=== PATIENT | female | born 1950 | race Caucasian/White ===

== ENCOUNTER → 2017-12-10 | Outpatient (CLI) | payer MEDICARE, OTHER ==
[~2017-12-10] MED LIST: ACET325 PO; ALBU90OI INH; ASPI325 PO; CHOL10002; FLUSAL2505 INH; IBUP400; NASACORT10.8 ML NS; OXYC5 PO; RANI150; [UNRECOGNIZED DRUG - OTHER]; [UNRECOGNIZED DRUG - REMARK]
== END | disposition home or self-care (01) ==
LOC: LAB SHORT 09:56 → PLD 09:56
DX: D48.5 Neoplasm of uncertain behavior of skin (principal)
CPT/HCPCS: 88305

== ENCOUNTER → 2018-09-16 | Outpatient (CLI) | payer MEDICARE, OTHER ==
[~2018-09-16] MED LIST changes: +ALEN70 PO; +Advil200 M1 PO; +DGL PO; +FLUT1DIS5 INH; +IBUP600 PO; +NASACORT10.8 ML; +Norco 5-325 Ta1 EACH PO; +PRAV20 PO; +THERA1 EACH PO; +Ventolin/Prove6.7 GM INH
== END | disposition home or self-care (01) ==
LOC: LAB SHORT 12:55 → PLD 12:55
DX: N85.02 Endometrial intraepithelial neoplasia [EIN] (principal)
CPT/HCPCS: 88305

== ENCOUNTER 2018-10-25 07:29 | Day surgery (SDC) | payer MEDICARE, OTHER ==
[~2018-10-25] VITALS: Ht 157.5 cm; Wt 103.7 kg
[~2018-10-25 07:29] MED LIST changes: -IBUP600 PO; -Norco 5-325 Ta1 EACH PO
--- NOTE | 2018-10-25 08:16 | NUR ---
NO JEWELRY PRESENT AT ADMIT, PATIENT HAS GLASSES ON.
--- NOTE | 2018-10-25 08:16 | NUR ---
History, Chart, Medications and Allergies reviewed before start of procedure. Patient confirms NPO status and agrees with scheduled surgery. Lungs clear T/O to Auscultation. Pre-Op teaching done. Pt verbalizes understanding. Patient reports completing Chlorhexadine shower X2 prior to admission to hospital.
--- NOTE | 2018-10-25 08:38 | NUR ---
EMERGENCY SERVICES PROFESSIONAL REPORT COMPLETED AT BEDSIDE WITH MALIK RODRIGUEZ RN.
--- NOTE | 2018-10-25 17:25 | NUR ---
SHIFT SUMMARY PT POD 0 LAVH. STERI STRIPS X'S 3 C/D/I. CAPONE PATENT, DRAINING CLEAR YELLOW URINE. PT MEDICATED ONCE WITH 5/325MG NORCO-PT REPORTS PAIN TOLERABLE AT 4/10 PAIN. PT AMBULATED TO BATHROOM ONCE POST-OP. ADVANCE TO VEGETARIAN DIET PT DENIES N/V AND TOLERATING CLEAR LIQUIDS. PLAN TO DC CAPONE IN AM WITH DC HOME TOMORROW IF PT MEETS DC CRITERIA.
--- NOTE | 2018-10-26 01:24 | NUR ---
ASSUMING CARE OF PT AT THIS TIME. REPORT RECEIVED BY JIGAR CASANOVA.
[2018-10-26 04:52] LABS: BASOPHILS ABSOLUTE AUTO 0.02 K/mm3 (0.00-0.23); BASOPHILS PERCENT AUTO 0 % (0-2); EOSINOPHILS PERCENT AUTO 0 % (0-6); Hematocrit 36.3 % (33.0-51.0); Hemoglobin 11.7 g/dL (11.5-16.0); IMMATURE GRAN ABSOLUTE AUTO 0.06 K/mm3 (0.00-0.10); IMMATURE GRAN PERCENT AUTO 0 % (0-1); LYMPHOCYTES ABSOLUTE AUTO 0.97 K/mm3 (0.84-5.20); LYMPHOCYTES PERCENT AUTO 6 % (21-46); MONOCYTES ABSOLUTE AUTO 0.89 K/mm3 (0.16-1.47); MONOCYTES PERCENT AUTO 6 % (4-13); Mean Corpuscular HGB 30.2 pg (26.0-34.0); Mean Corpuscular HGB Conc 32.2 g/dL (31.5-36.5); Mean Platelet Volume 10.8 fL (9.1-12.4); NEUTROPHILS ABSOLUTE AUTO 13.99 K/mm3 (1.96-9.15); NEUTROPHILS PERCENT AUTO 88 % (41-73); Platelet Count 246 K/mm3 (150-400); RDW Coefficient Variation 12.2 % (11.7-14.2); RDW Standard Deviation 41.5 fL (35.1-46.3); Red Blood Cell Count 3.87 M/mm3 (3.80-5.20); White Blood Cell Count 15.93 K/mm3 (4.00-11.30)
[2018-10-26 05:12] LABS: Mean Corpuscular Volume 94 fL (80-100)
--- NOTE | 2018-10-26 06:09 | NUR ---
SHIFT SUMMARY: PT A&O X4. VS STABLE. STERI STRIPS CDI. PAIN MANAGED WITH TORADOL. RATING PAIN 4/10 AND REPORTS IT IS TOLERABLE. AMBULATING HALLWAY. SBA. PT REPORTS PASSING FLATUS. SMALL AMOUNT OF BLOODY DRG ON PAMELA PAD. WAITING FOR PT TO VOID POST CAPONE REMOVAL.
--- NOTE | 2018-10-26 07:10 | NUR ---
recvd report from previous shift rn summer, pt sleeping in bed, bed in lowest position, bed rails up x 2, call light within reach
--- NOTE | 2018-10-26 08:00 | NUR ---
dr sneha corado rounding on pt
[2018-10-26] MEDS ORDERED: IBUP600 PO (11:11)
[2018-10-26] MEDS ORDERED: Norco 5-325 Ta1 EACH PO (11:11)
--- NOTE | 2018-10-26 11:30 | NUR ---
provided pt with discharge instructions, printed material/education, peripheral IV removed wnl. pt will dress herself, is awaiting her for ride home
--- NOTE | 2018-10-26 12:35 | NUR ---
pt escorted via wheelchair with her belongings to awaiting vehicle. will drive pt home
--- NOTE | 2018-10-26 16:17 | NUR ---
10/26/18 1617 Pricilla Motley VERIFICATIONS: EDIT CHART.
== END 2018-10-26 12:35 | disposition home or self-care (01) ==
LOC: ORSCMMR 07:29 → ORD 09:00 → ORSCMMR 09:00 → SURS 12:18 → ORSCMMR 10-26 12:35
PROVIDERS: Obstetrics & Gynecology
PROC: 0UT6FZZ Resection of Left Fallopian Tube, Via Natural or Artificial Opening With Percutaneous Endoscopic Assistance (ICD-10-PCS; principal; 2018-10-25 09:00)
PROC: 0UT1FZZ Resection of Left Ovary, Via Natural or Artificial Opening With Percutaneous Endoscopic Assistance (ICD-10-PCS; principal; 2018-10-25 09:00)
PROC: 0UT9FZZ Resection of Uterus, Via Natural or Artificial Opening With Percutaneous Endoscopic Assistance (ICD-10-PCS; principal; 2018-10-25 09:00)
DX: N95.0 Postmenopausal bleeding (principal); C54.1 Malignant neoplasm of endometrium; N80.0 Endometriosis of uterus; D25.9 Leiomyoma of uterus, unspecified; D27.1 Benign neoplasm of left ovary; J45.909 Unspecified asthma, uncomplicated; E66.01 Morbid (severe) obesity due to excess calories; Z68.41 Body mass index [BMI] 40.0-44.9, adult; Z79.899 Other long term (current) drug therapy
CPT/HCPCS: 36415; 85025; 88104; 88309; A9270-GY; C1729; J0690; J1100; J1885; J2370; J2405; J2704; J3010; J7120

== ENCOUNTER → 2020-02-09 | Outpatient (CLI) | payer MEDICARE, OTHER ==
[~2020-02-09] MED LIST changes: +IBUP600 PO; +Norco 5-325 Ta1 EACH PO
[2020-02-11 17:20] LABS: CORONAVIRUS (COVID19) CSH-NRL Negative (Negative)
== END | disposition home or self-care (01) ==
LOC: LAB SHORT 12:31 → LAB EV 12:31
PROVIDERS: Physician Assistant
DX: Z20.828 Contact with and (suspected) exposure to other viral communicable diseases (principal)
CPT/HCPCS: U0003

== ENCOUNTER 2020-05-16 23:10 | Inpatient (IN) | payer MEDICARE, OTHER ==
[~2020-05-16] VITALS: Ht 157.5 cm; Wt 114.7 kg
[2020-05-17 00:21] LABS: Source, Urine Catheter
[2020-05-17 00:30] LABS: Blood, Urine 1+ (Neg); Glucose Qualitative, Urine Neg (Neg); Ketones, Urine 1+ (Neg); Leukocyte Esterase, Urine 1+ (Neg); Nitrite, Urine Neg (Neg); Protein, Urine 2+ (Neg); Urobilinogen, Urine 1+ (Normal)
[2020-05-17 00:38] LABS: Appearance, Urine Hazy (Clear); Bilirubin, Urine 1+ (Neg); Color, Urine Amber (P-Yellow)
[2020-05-17 00:40] LABS: Amorphous Light (0-Heavy); Bacteria Mod /hpf; Calcium Oxalate Crystals Few /hpf; Mucus Mod (0-Heavy); Squamous Epithelial Cells Few /hpf (Few)
[2020-05-17 02:27] LABS: BASOPHILS ABSOLUTE AUTO 0.04 K/mm3 (0.00-0.23); BASOPHILS PERCENT AUTO 0 % (0-2); EOSINOPHILS PERCENT AUTO 0 % (0-6); Hematocrit 44.2 % (33.0-51.0); Hemoglobin 14.3 g/dL (11.5-16.0); IMMATURE GRAN ABSOLUTE AUTO 0.08 K/mm3 (0.00-0.10); IMMATURE GRAN PERCENT AUTO 1 % (0-1); LYMPHOCYTES ABSOLUTE AUTO 0.74 K/mm3 (0.84-5.20); LYMPHOCYTES PERCENT AUTO 4 % (21-46); MONOCYTES ABSOLUTE AUTO 0.66 K/mm3 (0.16-1.47); MONOCYTES PERCENT AUTO 4 % (4-13); Mean Corpuscular HGB 30.3 pg (26.0-34.0); Mean Corpuscular HGB Conc 32.4 g/dL (31.5-36.5); Mean Corpuscular Volume 94 fL (80-100); Mean Platelet Volume 10.5 fL (9.1-12.4); NEUTROPHILS ABSOLUTE AUTO 16.24 K/mm3 (1.96-9.15); NEUTROPHILS PERCENT AUTO 91 % (41-73); Platelet Count 285 K/mm3 (150-400); RDW Coefficient Variation 11.9 % (11.7-14.2); RDW Standard Deviation 41.5 fL (35.1-46.3); Red Blood Cell Count 4.72 M/mm3 (3.80-5.20); White Blood Cell Count 17.76 K/mm3 (4.00-11.30)
[2020-05-17 02:46] LABS: Alanine Aminotransfer (ALT/SGP 349 U/L (12-78); Albumin, Blood 3.6 g/dL (3.4-5.0); Albumin/Globulin Ratio 0.9 (0.8-1.8); Alk Phos 160 U/L (50-136); Anion Gap 9 mmol/L (6-16); Aspartate Aminotrans (AST/SGOT 481 U/L (12-37); Bilirubin, Total 1.4 mg/dL (0.1-1.0); Blood Urea Nitrogen 15 mg/dL (8-24); Bun/Creatinine Ratio 22.4 (12.0-20.0); CO2, Blood 26 mmol/L (21-32); Calcium, Blood 8.2 mg/dL (8.5-10.1); Chloride, Blood 106 mmol/L (98-108); Creatinine, Blood 0.67 mg/dL (0.40-1.00); Globulin, Blood 3.8 g/dL (2.2-4.0); Glomerular Filtration Rate >60 (60-); Glucose, Blood 181 mg/dL (70-99); Sodium, Blood 141 mmol/L (136-145); Total Protein, Blood 7.4 g/dL (6.4-8.2)
[2020-05-17 02:51] LABS: CHOL/HDL RATIO 2.6; Cholesterol 182 mg/dL (50-200); HDL Cholesterol 71 mg/dL (>39); LDL/HDL RATIO 1.4; Low Density Lipoprotein Chol 102 mg/dL (0-110); Triglycerides 45 mg/dL (30-160); Very Low Density Lipoprot Chol 9 mg/dL (6-32)
--- NOTE | 2020-05-17 11:25 | NUR ---
[place] of Care/Admission to [facility]: Care assumed at 0700hr. Patient drowsy/sleeping but responds to verbal stimuli, oriented x4. VSS, but BP elevated to systolic of 170's-180's, prn hydralazine given by NOC shift RN. Patient also c/o ABD pain 6-11/20. PRN dilaudid initially given before also giving additional prn hydralizine. PRN Dialudid effective to decrease pain to tolerable level, patient appearing calm and comfortable. BP also decreased to 150's-160's. Dr. Monreal in to see patient this morning. Received order to increase frequency of Hydralzine dose, as BP had increased deann to 180's. X1 dose of 10mg prn Hyralazine then give. Bed assignment then received for [facility]. Report called to Giovani KIMBALL. Patient transferred to [facility] at 1045hr.
--- NOTE | 2020-05-17 11:32 | NUR ---
ARRIVAL TO UNIT PT ARRIVED TO UNIT FROM ER VIA GURNEY. ABLE TO STAND AND TRANSFER WITH MINIMAL ASSISST. IV FLUIDS INFUSING FROM ER. PT DECLINES PAIN AND REPORTS SOB FROM ASTHMA THAT IS BASELINE FOR PT. PT REPORTING PAIN AT 5/10 BUT IS WHIMPERING IN BED WITH EYES CLOSED. PT AA0X4 AT THIS TIME. EDUCATED COBBLER APPRENTICE LIGHT USE. BED ALARM ON AT THIS TIME. CALL LIGHT IN REACH.
--- NOTE | 2020-05-17 14:57 | NUR ---
PT GAVE PERMISSION TO THIS STUDENT RN TO CARE FOR HER TODAY
--- NOTE | 2020-05-17 17:01 | NUR ---
SHIFT SUMMARY NO ACUTE CHANGES SINCE ARRIVAL TO UNIT PT STATES SHE IS FEELING BETTER THSI EVENINING. SHE WAS SITTING UP IN BED SMILING, PT APPEARS MORE ALERT AT THIS TIME. PER PT REQUEST TEMPERATURE IS UP IN THE ROOM, STATES SHE LIKES IT HIGHER. FACE IS FLUSHED FROM ROSEACEA PER PT REPORT, THIS IS NORMAL FOR HER. PLAN WILL BE TO REMAIN NPO.
--- NOTE | 2020-05-17 21:15 | NUR ---
PT RESTING WITH EYES CLOSED DURING MOST OF THE EDUCATION GIVEN. SHE DOES OPEN HER EYES TO QUESTIONS AND RESPONDS, SHE IS SLOW TO RESPOND.
[2020-05-18 04:40] LABS: BASOPHILS ABSOLUTE AUTO 0.05 K/mm3 (0.00-0.23); BASOPHILS PERCENT AUTO 0 % (0-2); EOSINOPHILS PERCENT AUTO 0 % (0-6); Hematocrit 41.7 % (33.0-51.0); Hemoglobin 13.6 g/dL (11.5-16.0); IMMATURE GRAN ABSOLUTE AUTO 0.14 K/mm3 (0.00-0.10); IMMATURE GRAN PERCENT AUTO 1 % (0-1); LYMPHOCYTES ABSOLUTE AUTO 1.24 K/mm3 (0.84-5.20); LYMPHOCYTES PERCENT AUTO 5 % (21-46); MONOCYTES ABSOLUTE AUTO 1.31 K/mm3 (0.16-1.47); MONOCYTES PERCENT AUTO 5 % (4-13); Mean Corpuscular HGB 31.1 pg (26.0-34.0); Mean Corpuscular HGB Conc 32.6 g/dL (31.5-36.5); Mean Corpuscular Volume 95 fL (80-100); Mean Platelet Volume 10.5 fL (9.1-12.4); NEUTROPHILS ABSOLUTE AUTO 22.91 K/mm3 (1.96-9.15); NEUTROPHILS PERCENT AUTO 89 % (41-73); Platelet Count 271 K/mm3 (150-400); RDW Coefficient Variation 12.9 % (11.7-14.2); RDW Standard Deviation 45.1 fL (35.1-46.3); Red Blood Cell Count 4.38 M/mm3 (3.80-5.20); White Blood Cell Count 25.65 K/mm3 (4.00-11.30)
[2020-05-18 04:58] LABS: Alanine Aminotransfer (ALT/SGP 203 U/L (12-78); Albumin, Blood 2.9 g/dL (3.4-5.0); Albumin/Globulin Ratio 0.8 (0.8-1.8); Alk Phos 120 U/L (50-136); Anion Gap 5 mmol/L (6-16); Aspartate Aminotrans (AST/SGOT 148 U/L (12-37); Bilirubin, Total 0.8 mg/dL (0.1-1.0); Blood Urea Nitrogen 11 mg/dL (8-24); Bun/Creatinine Ratio 16.7 (12.0-20.0); CO2, Blood 27 mmol/L (21-32); Calcium, Blood 7.4 mg/dL (8.5-10.1); Chloride, Blood 111 mmol/L (98-108); Creatinine, Blood 0.66 mg/dL (0.40-1.00); Globulin, Blood 3.5 g/dL (2.2-4.0); Glomerular Filtration Rate >60 (60-); Glucose, Blood 90 mg/dL (70-99); Sodium, Blood 143 mmol/L (136-145); Total Protein, Blood 6.4 g/dL (6.4-8.2)
--- NOTE | 2020-05-18 07:24 | NUR ---
SHIFT SUMMARY: KATT IS A&O X 4 WITH SOME CONFUSION NOTED. SHE AWOKE DURING THE NIGHT AND DID NOT REMEMBER WHERE SHE WAS. SHE DID NOT REMEMBER COMING TO THE FLOOR FROM ER. ANOTHER TIME DURING THE NIGHT, SHE STATED HER MOTHER'S NAME WHEN ASKED FOR HER NAME AND . SHE DID CATCH THAT SHE HAD GIVEN THE INCORRECT NAME ON HER OWN. SHE HAS REMOVED HER OXYGEN AND CONTINUOUS PULSE OXIMETER THIS SHIFT. SHE DID REPORT THAT SOMETIMES SHE DOES NOT KNOW WHERE SHE IS WHEN SHE WAKES UP AT HOME, HER (WHO HELPS HER MAKE HEALTHCARE DECISIONS) CONFIRMED THAT SHE HAS EPISODES OF CONFUSION AND ESPECIALLY FORGETFULNESS. SHE IS A ONE PERSON ASSIST TO THE BEDSIDE COMMODE. IV TO R A C PATENT, FLUIDS INFUSING. TELE AND CONTINUOS PULSE OX IN PLACE. SHE REPORTS ADEQUATE PAIN CONTROL WITH THE TORADOL. SHE STATES THAT SHE DOES NOT WANT TO TAKE ANY OPIOD PAIN MEDICATION D/T SEVERE CONSTIPATION IN THE PAST EVEN WITH BOWEL CARE STARTED WITH THE NARCOTICS. HER FEELS THAT MIRALAX WOULD BE BENEFICIAL ALONG WITH THE STOOL SOFTENERS. ON-CALL PHYSICIAN NOTIFIED OF WBCs, CALCIUM AND NEED FOR BOWEL CARE. NEW ORDER FOR IONIZED CALCIUM GIVEN. SHE IS LYING IN BED WITH HER CALL LIGHT IN REACH, AT BEDSIDE. BED ALARM ON FOR SAFETY. WILL REPORT TO DAY SHIFT RN.
--- NOTE | 2020-05-18 10:56 | NUR ---
BROUGHT IN A COPY OF PATIENTS ADVANCE DIRECTIVE. PLACED IN CHART. SPOKE WITH DR. MALDONADO TO CHANGE PATIENTS CODE STATUS TO DNR PER HER ADVANCE DIRECTIVE.
--- NOTE | 2020-05-18 14:47 | NUR ---
Resumed care of patient
--- NOTE | 2020-05-18 15:20 | NUR ---
REPORT GIVEN TO CONSTANTIN KIMBALL
--- NOTE | 2020-05-18 15:30 | NUR ---
assumed pt care pt talking on the phone
--- NOTE | 2020-05-18 17:30 | NUR ---
encouraged pt to drink fluids if she is having inc pain with juice
[2020-05-19 04:02] LABS: BASOPHILS ABSOLUTE AUTO 0.09 K/mm3 (0.00-0.23); BASOPHILS PERCENT AUTO 0 % (0-2); EOSINOPHILS PERCENT AUTO 0 % (0-6); Hematocrit 42.7 % (33.0-51.0); Hemoglobin 13.4 g/dL (11.5-16.0); IMMATURE GRAN ABSOLUTE AUTO 0.29 K/mm3 (0.00-0.10); IMMATURE GRAN PERCENT AUTO 1 % (0-1); LYMPHOCYTES ABSOLUTE AUTO 1.08 K/mm3 (0.84-5.20); LYMPHOCYTES PERCENT AUTO 4 % (21-46); MONOCYTES ABSOLUTE AUTO 1.86 K/mm3 (0.16-1.47); MONOCYTES PERCENT AUTO 7 % (4-13); Mean Corpuscular HGB 30.2 pg (26.0-34.0); Mean Corpuscular HGB Conc 31.4 g/dL (31.5-36.5); Mean Corpuscular Volume 96 fL (80-100); Mean Platelet Volume 11.1 fL (9.1-12.4); NEUTROPHILS ABSOLUTE AUTO 24.58 K/mm3 (1.96-9.15); NEUTROPHILS PERCENT AUTO 88 % (41-73); Platelet Count 234 K/mm3 (150-400); RDW Coefficient Variation 12.5 % (11.7-14.2); RDW Standard Deviation 44.6 fL (35.1-46.3); Red Blood Cell Count 4.44 M/mm3 (3.80-5.20)
[2020-05-19 04:29] LABS: Anion Gap 9 mmol/L (6-16); Blood Urea Nitrogen 12 mg/dL (8-24); Bun/Creatinine Ratio 19.2 (12.0-20.0); CO2, Blood 25 mmol/L (21-32); Calcium, Blood 8.3 mg/dL (8.5-10.1); Chloride, Blood 108 mmol/L (98-108); Creatinine, Blood 0.62 mg/dL (0.40-1.00); Glomerular Filtration Rate >60 (60-); Glucose, Blood 77 mg/dL (70-99); Potassium, Blood 3.7 mmol/L (3.5-5.5); Sodium, Blood 142 mmol/L (136-145)
--- NOTE | 2020-05-19 05:33 | NUR ---
PT HAD NO ACUTE CHANGES T/O NIGHT. HR SINUS 80'S PER TELE MONITOR. BP ELEVATED, BUT REMAINS BENEATH PRN PARAMETERS. PT DENIED CP/PRESSURE. PT IS SOB W/EXERTION; RESP SHALLOW. SATS LOW 90'S ON RA, 2LO2 IN PLACE PRN T/O NIGHT, CONT OX IN PLACE. PAIN MGD W/TORADOL AND TYLENOL, PT REP PAIN MARYURI, DECLINED NARCOTIC PAIN MEDS. PT DENIED N/V, PO INTAKE MINIMAL. PT REP INC PAIN AFTER CL PO YESTERDAY REQ ONLY SIPS OF WATER AND ICE CHIPS. URINE DARK HARPER, PT REPORTS PAIN W/VOID. PO FLUIDS ENC PT MARYURI.
--- NOTE | 2020-05-19 10:53 | NUR ---
PT'S SATS DROPPED TO MID TO HIGH 80S SLEEPING. PLACED ON 2L NC, NOW 94%
--- NOTE | 2020-05-19 15:30 | NUR ---
DISCUSSED PT'S POOR PO INTAKE AND CONCENTRATED URINE/LOW UO W/DR MALDONADO. DOES NOT WISH TO RUN IV FLUIDS. ENCOURAGE PO INTAKE TOLERATED. DISCUSSED PAIN WITH URINATION. NO NEW ORDERS AT THIS TIME.
--- NOTE | 2020-05-19 17:41 | NUR ---
SUMMARY NO ACUTE CHANGES T/O SHIFT. PT HAS BEEN PAINFUL, MEDICATED PER ORDERS T/O SHIFT. PT SLEPT OFF AND ON T/O DAY. AMBULATED SHORT DISTANCE IN HALLWAY. POOR PO INTAKE AND UO; DISCUSSED W/DR MALDONADO WHEN ROUNDED. PT SL'D. ENCOURAGED FLUIDS. CALL LIGHT IN REACH.
[2020-05-20 04:02] LABS: BASOPHILS ABSOLUTE AUTO 0.04 K/mm3 (0.00-0.23); BASOPHILS PERCENT AUTO 0 % (0-2); EOSINOPHILS ABSOLUTE AUTO 0.06 K/mm3 (0.00-0.68); EOSINOPHILS PERCENT AUTO 0 % (0-6); Hematocrit 38.5 % (33.0-51.0); Hemoglobin 12.2 g/dL (11.5-16.0); IMMATURE GRAN ABSOLUTE AUTO 0.23 K/mm3 (0.00-0.10); IMMATURE GRAN PERCENT AUTO 1 % (0-1); LYMPHOCYTES ABSOLUTE AUTO 1.12 K/mm3 (0.84-5.20); LYMPHOCYTES PERCENT AUTO 5 % (21-46); MONOCYTES ABSOLUTE AUTO 1.72 K/mm3 (0.16-1.47); MONOCYTES PERCENT AUTO 8 % (4-13); Mean Corpuscular HGB Conc 31.7 g/dL (31.5-36.5); Mean Corpuscular Volume 95 fL (80-100); Mean Platelet Volume 10.5 fL (9.1-12.4); NEUTROPHILS ABSOLUTE AUTO 18.94 K/mm3 (1.96-9.15); NEUTROPHILS PERCENT AUTO 86 % (41-73); Platelet Count 251 K/mm3 (150-400); RDW Coefficient Variation 12.4 % (11.7-14.2); RDW Standard Deviation 43.7 fL (35.1-46.3); Red Blood Cell Count 4.06 M/mm3 (3.80-5.20); White Blood Cell Count 22.11 K/mm3 (4.00-11.30)
[2020-05-20 04:31] LABS: Alanine Aminotransfer (ALT/SGP 96 U/L (12-78); Albumin, Blood 2.6 g/dL (3.4-5.0); Albumin/Globulin Ratio 0.6 (0.8-1.8); Alk Phos 168 U/L (50-136); Anion Gap 8 mmol/L (6-16); Aspartate Aminotrans (AST/SGOT 50 U/L (12-37); Bilirubin, Direct 0.4 mg/dL (0.0-0.3); Bilirubin, Indirect 0.6 mg/dL (0.1-0.7); Blood Urea Nitrogen 14 mg/dL (8-24); Bun/Creatinine Ratio 22.6 (12.0-20.0); CO2, Blood 25 mmol/L (21-32); Calcium, Blood 8.1 mg/dL (8.5-10.1); Chloride, Blood 106 mmol/L (98-108); Creatinine, Blood 0.62 mg/dL (0.40-1.00); Globulin, Blood 4.1 g/dL (2.2-4.0); Glomerular Filtration Rate >60 (60-); Glucose, Blood 69 mg/dL (70-99); Potassium, Blood 3.3 mmol/L (3.5-5.5); Sodium, Blood 139 mmol/L (136-145); Total Protein, Blood 6.7 g/dL (6.4-8.2)
[2020-05-20 04:32] LABS: C-REACTIVE PROTEIN, EXT RANGE >19.000 mg/dL (0.000-0.300)
--- NOTE | 2020-05-20 06:52 | NUR ---
PT HAD NO CHANGES T/O NIGHT. BP ELEVATED, PRN HYDRALAZINE GIVEN W/NO SIG EFFECT NOTED. PT DENIED CP/PRESSURE, HR SINUS 80'S PER TELE MONITOR. RESP SHALLOW, 2LO2 IN PALCE TO KEEP SATS >90%. PO INTAKE MINIMAL. URINE OUTPUT DECREASED, URINE REMAINS DARK HARPER AND VERY CONCENTRATED. PT CONT TO REP APIN W/VOID. BT HYPO, PT HAD NO C/O N/V, REP NO FLATUS. PT FORGETFUL AND SLOW TO RESPOND, REORIENTS EASILY. PLAN FOR TO COME IN THSI AM FOR MD ROUNDING.
--- NOTE | 2020-05-20 17:17 | NUR ---
SUMMARY: NO ACUTE CHANGE TODAY. VSS, A/O, SOMEWHAT FORGETFUL AT TIMES, USES CALL LIGHT. TELE STABLE. PT TOLERATING CLEAR LIQ WITHOUT N/V, ABD IS MODERATLY DISTENDED. PT HAS COMPLAINED OF MINIMAL PAIN, ALTHOUGH APPEARS EXHAUSTED, WEAK AND GAURDS HER ABD. PT REPORTS PASSING GAS.. TOTAL URINE OUTPUT OF 300ML HARPER IN COLOR. PT CONTINUES TO HAVE HTN AT TIMES, DR. MALDONADO NOTIFIED AND MEDICATIONS GIVEN PRN. PT HAS NEW POWERGLIDE. PT AT BEDSIDE CURRENTLY. NO SAFETY CONCERNS, WILL REPORT TO NOC RN.
[2020-05-21 04:53] LABS: BASOPHILS ABSOLUTE AUTO 0.06 K/mm3 (0.00-0.23); BASOPHILS PERCENT AUTO 0 % (0-2); EOSINOPHILS PERCENT AUTO 1 % (0-6); Hematocrit 36.9 % (33.0-51.0); IMMATURE GRAN ABSOLUTE AUTO 0.18 K/mm3 (0.00-0.10); IMMATURE GRAN PERCENT AUTO 1 % (0-1); LYMPHOCYTES ABSOLUTE AUTO 1.12 K/mm3 (0.84-5.20); LYMPHOCYTES PERCENT AUTO 6 % (21-46); MONOCYTES ABSOLUTE AUTO 1.43 K/mm3 (0.16-1.47); MONOCYTES PERCENT AUTO 8 % (4-13); Mean Corpuscular HGB 30.2 pg (26.0-34.0); Mean Corpuscular HGB Conc 32.5 g/dL (31.5-36.5); Mean Corpuscular Volume 93 fL (80-100); Mean Platelet Volume 9.9 fL (9.1-12.4); NEUTROPHILS ABSOLUTE AUTO 15.47 K/mm3 (1.96-9.15); NEUTROPHILS PERCENT AUTO 84 % (41-73); Platelet Count 285 K/mm3 (150-400); RDW Coefficient Variation 12.6 % (11.7-14.2); RDW Standard Deviation 43.4 fL (35.1-46.3); Red Blood Cell Count 3.98 M/mm3 (3.80-5.20); White Blood Cell Count 18.46 K/mm3 (4.00-11.30)
[2020-05-21 05:11] LABS: Alanine Aminotransfer (ALT/SGP 92 U/L (12-78); Albumin, Blood 2.6 g/dL (3.4-5.0); Albumin/Globulin Ratio 0.6 (0.8-1.8); Alk Phos 168 U/L (50-136); Anion Gap 9 mmol/L (6-16); Aspartate Aminotrans (AST/SGOT 56 U/L (12-37); Bilirubin, Total 1.1 mg/dL (0.1-1.0); Blood Urea Nitrogen 14 mg/dL (8-24); Bun/Creatinine Ratio 23.1 (12.0-20.0); CO2, Blood 25 mmol/L (21-32); Calcium, Blood 8.3 mg/dL (8.5-10.1); Chloride, Blood 105 mmol/L (98-108); Creatinine, Blood 0.61 mg/dL (0.40-1.00); Globulin, Blood 4.1 g/dL (2.2-4.0); Glomerular Filtration Rate >60 (60-); Glucose, Blood 108 mg/dL (70-99); Potassium, Blood 3.3 mmol/L (3.5-5.5); Sodium, Blood 139 mmol/L (136-145); Total Protein, Blood 6.7 g/dL (6.4-8.2)
--- NOTE | 2020-05-21 07:52 | NUR ---
PT HAD NO ACUTE CHANGES T/O NIGHT. BP REMAINS ELEVATED, PT DENIES CP/PRESSURE. PRN HYDRALIZINE GIVEN X2, BP NOTED IMPROVED AFTER. HR SINUS 80'S-90'S. PT REMAINS SOB W/EXERTION, RT TX GFIVEN X2 W/REP RELIEF. SATS LOW 90'S, DROP TO MID 80'S WHEN SLEEPING; 2LO2 NC IN PLACE PRN. PO FLUIDS SOMEWHAT BETTER, APPX 480 THIS SHIFT. PT NEEDING MUCH ENCOURAGEMENT TO DRINK FLUIDS. URINE REMAINS VERY DARK/CONCENTRATED HARPER, PT VOIDING SMALL AMTS; 50-100ML AT A TIME, PT REP PAIN W/VOIDS. ABD PAIN MGD PER EMAR, PT REQ TO LIMIT MORPHINE. PT ALERT, IS FORGETFUL AND IMPULSIVE AT TIMES, USES CALL LIGHT FOR APPROPRIATELY.
--- NOTE | 2020-05-21 11:01 | NUR ---
CARE COORDINATION REFERRAL - ADMIT: 05/17/20 DISCHARGE: DX: ACUTE PANCREATITIS CC: CLEMENT CALL: RESIDENCE: HOME WITH SPOUSE CAREGIVER: JANIE MCCORD II, SPOUSE / PARTNER, DX: GERD, ASTHMA, EDEMA OF LOWER EXTREMITY, SEE LIST DME: KNEE IMMOBILIZER, CRUTCHES CCM: NONE HOME HEALTH: NONE SUMMARY: ASSESSMENT: 05/18/20- MET WITH PT AND . THEY HAVE SEVERAL QUESTIONS REGARDING HOW AND WHY SHE GOT HER PANCREATITIS. THEY HAVE THEM WRITTEN DOWN TO DISCUSS WITH THE DOCTOR WHEN HE VISITS THE ROOM. -JIMMIE
--- NOTE | 2020-05-21 15:50 | NUR ---
IMAGING: PT TO CT AT THIS TIME VIA WHEELCHAIR.
--- NOTE | 2020-05-21 18:41 | NUR ---
PT HAS BEEN STABLE THIS SHIFT. HYPERTENSIVE, HYDRALAZINE PER EMAR GIVEN. TELE NSR. PT SOB WITH ACITIVITY. CONT BIOX IN PLACE. 2L O2 USED INTERMITTENTLY NEEDED FOR SATS <90% WITH SLEEP. PT HAS POOR APPETITE AND INTAKE. IV AT TKO. VOIDING WELL. URINE CLEARING. NO URINARY SYMPTOMS. MEDICATED FOR PAIN DAMIR EMAR. PLAN FOR OR TOMORROW. NPO AFTER MIDNIGHT. LOVENOX TO BE HELD IN AM. PT USES CALL LIGHT APPROPRIATELY NEEDED.
[2020-05-21 23:44] LABS: Influenza A, PCR NEGATIVE (NEGATIVE); Influenza B, PCR NEGATIVE (NEGATIVE); Resp Syncytial Virus, PCR NEGATIVE (NEGATIVE); SARS-Cov-2 (COVID-19) PCR, MMC NEGATIVE (NEGATIVE)
--- NOTE | 2020-05-22 04:13 | NUR ---
SHIFT SUMMARY: PT HAS BEEN NPO SINCE MIDNIGHT FOR SURGERY TODAY. PT C/O MILD ABD PAIN AND HEADACHE. MEDICATED WITH TORADOL PER EMAR. PT CONTINUES TO BE HYPERTENSIVE. IV LABETALOL AND HYDRALAZINE ADMINISTERED PER ORDERS. PT MINIMAL ASSIST TO BSC. SOB WITH ACTIVITY AND AT REST. PT REPORTS SOB WITH ACTIVITY AT BASELINE. 2LO2 VIA NC PLACED WHILE SLEEPING. BIOX IN PLACE. NEW ORDER FOR IV POTASSIUM THIS SHIFT WHICH HAS BEEN COMPLETED. IVF INITIATED PER ORDERS. PLAN FOR SURGERY TODAY.
[2020-05-22 06:00] LABS: BASOPHILS ABSOLUTE AUTO 0.06 K/mm3 (0.00-0.23); BASOPHILS PERCENT AUTO 0 % (0-2); EOSINOPHILS ABSOLUTE AUTO 0.16 K/mm3 (0.00-0.68); EOSINOPHILS PERCENT AUTO 1 % (0-6); Hematocrit 36.1 % (33.0-51.0); Hemoglobin 11.8 g/dL (11.5-16.0); IMMATURE GRAN PERCENT AUTO 2 % (0-1); LYMPHOCYTES ABSOLUTE AUTO 1.45 K/mm3 (0.84-5.20); LYMPHOCYTES PERCENT AUTO 8 % (21-46); MONOCYTES ABSOLUTE AUTO 1.51 K/mm3 (0.16-1.47); MONOCYTES PERCENT AUTO 9 % (4-13); Mean Corpuscular HGB 30.3 pg (26.0-34.0); Mean Corpuscular HGB Conc 32.7 g/dL (31.5-36.5); Mean Corpuscular Volume 93 fL (80-100); Mean Platelet Volume 10.1 fL (9.1-12.4); NEUTROPHILS ABSOLUTE AUTO 14.25 K/mm3 (1.96-9.15); NEUTROPHILS PERCENT AUTO 80 % (41-73); Platelet Count 306 K/mm3 (150-400); RDW Coefficient Variation 12.9 % (11.7-14.2); RDW Standard Deviation 44.2 fL (35.1-46.3); Red Blood Cell Count 3.89 M/mm3 (3.80-5.20); White Blood Cell Count 17.73 K/mm3 (4.00-11.30)
[2020-05-22 06:18] LABS: Alanine Aminotransfer (ALT/SGP 106 U/L (12-78); Albumin, Blood 2.5 g/dL (3.4-5.0); Albumin/Globulin Ratio 0.6 (0.8-1.8); Alk Phos 195 U/L (50-136); Anion Gap 8 mmol/L (6-16); Aspartate Aminotrans (AST/SGOT 70 U/L (12-37); Bilirubin, Total 0.9 mg/dL (0.1-1.0); Blood Urea Nitrogen 13 mg/dL (8-24); Bun/Creatinine Ratio 18.8 (12.0-20.0); CO2, Blood 26 mmol/L (21-32); Calcium, Blood 8.4 mg/dL (8.5-10.1); Chloride, Blood 107 mmol/L (98-108); Creatinine, Blood 0.69 mg/dL (0.40-1.00); Globulin, Blood 4.2 g/dL (2.2-4.0); Glomerular Filtration Rate >60 (60-); Glucose, Blood 102 mg/dL (70-99); Potassium, Blood 3.8 mmol/L (3.5-5.5); Sodium, Blood 141 mmol/L (136-145); Total Protein, Blood 6.7 g/dL (6.4-8.2)
--- NOTE | 2020-05-22 07:26 | NUR ---
US AT BEDSIDE PT REPORTS PAIN 07/21 ALSO SOB R/T N/V SEVERAL DAYS AGO STATED IT HURTS TO BREATH NO NAUSEA AT THIS TIME TORADAOL GIVEN WILL GIVE PO TYLENOL WITH SIP OF WATER
--- NOTE | 2020-05-22 09:30 | NUR ---
pt transported to day surg via [facility]
--- NOTE | 2020-05-22 09:46 | NUR ---
INTO SDS VIA GURNERY FROM SURG FLOOR. History, Chart, Medications and Allergies reviewed before start of procedure.Patient confirms NPO status and agrees with scheduled surgery. Surgical site prepped with 2% Chlorhexidine cloth wipe. Lungs clear T/O to Auscultation.POWER GLIDE TO RANDY PATENT AND FLUSHES EASILY.
--- NOTE | 2020-05-22 09:56 | NUR ---
CONSENT FOR PROCEDURE AND ANESTHESIA OBTAINED FROM PER PT REQUEST
--- NOTE | 2020-05-22 10:55 | NUR ---
05/22/20 1055 Pricilla Motley PT ON SCHEDULED ABX. PT HAS MULTIPLE BRUISES ON ABD FROM LOVENOX INJECTIONS.
--- NOTE | 2020-05-22 14:30 | NUR ---
PT ARRIVED BACK TO ROOM 233 FROM PACU ASSISTED INTO BED PT STATED SHE IS NAUSEATED NO EMESIS WILL GIVE ZOFRAN PT DENIES PAIN PT HAS 5 GAUZE DRESSING TO ABD WITH TEGADERM 1 DRESSING TO LOWER ABD AHS SCANT AMT OF LIGHT PINK DRAINAGE PT DROWSY FALLS TO SLEEP ICE CHIPS GIVEN WHEN PT NAUSEA IS BETTER
--- NOTE | 2020-05-22 15:03 | NUR ---
05/22/20- pt has surgery scheduled for today at 1030. Will order PT and OT evaluations prior to her discharge. -bar
--- NOTE | 2020-05-22 16:24 | NUR ---
rt at bedside for abg pt had chest xray pt cont to be drowsy and conf
[2020-05-22 16:25] LABS: PCO2 Arterial 47.6 mmHg (35-45); PO2 Arterial 85.1 mmHg (80-100); pH Blood Arterial 7.35 (7.35-7.45)
--- NOTE | 2020-05-22 17:26 | NUR ---
DR SWANN BY TO SEE PT
--- NOTE | 2020-05-22 17:53 | NUR ---
lasix 40 mg ivp given per new order pt s/o at bedside reviewed lab and xray and meds
--- NOTE | 2020-05-23 03:38 | NUR ---
SHIFT SUMMARY PT HAS BEEN ALERT, SLIGHTLY CONFUSED AND SLOW TO RESPOND BUT ANSWERING QUESTIONS APPROPRIATELY. UP TO BSC WITH 1X ASSIST. TOLERATING CLEAR LIQUIDS W/O NAUSEA. USING O2 NC TO MAINTAIN O2 SAT ABOVE 92%. DENIES SOB OVERNIGHT. LAP SITES TO ABD WITH GAUZE AND TEGADERM. NO ACUTE CHANGES OVERNIGHT. RESTING IN BED AT THIS TIME WITH CALL LIGHT IN PLACE.
[2020-05-23 05:56] LABS: BASOPHILS ABSOLUTE AUTO 0.05 K/mm3 (0.00-0.23); BASOPHILS PERCENT AUTO 0 % (0-2); EOSINOPHILS ABSOLUTE AUTO 0.03 K/mm3 (0.00-0.68); EOSINOPHILS PERCENT AUTO 0 % (0-6); Hematocrit 33.5 % (33.0-51.0); Hemoglobin 10.9 g/dL (11.5-16.0); IMMATURE GRAN ABSOLUTE AUTO 0.36 K/mm3 (0.00-0.10); IMMATURE GRAN PERCENT AUTO 2 % (0-1); LYMPHOCYTES ABSOLUTE AUTO 1.47 K/mm3 (0.84-5.20); LYMPHOCYTES PERCENT AUTO 10 % (21-46); MONOCYTES ABSOLUTE AUTO 1.25 K/mm3 (0.16-1.47); MONOCYTES PERCENT AUTO 8 % (4-13); Mean Corpuscular HGB 30.6 pg (26.0-34.0); Mean Corpuscular HGB Conc 32.5 g/dL (31.5-36.5); Mean Corpuscular Volume 94 fL (80-100); Mean Platelet Volume 10.4 fL (9.1-12.4); NEUTROPHILS ABSOLUTE AUTO 12.29 K/mm3 (1.96-9.15); NEUTROPHILS PERCENT AUTO 80 % (41-73); Platelet Count 320 K/mm3 (150-400); RDW Coefficient Variation 13.3 % (11.7-14.2); Red Blood Cell Count 3.56 M/mm3 (3.80-5.20); White Blood Cell Count 15.45 K/mm3 (4.00-11.30)
[2020-05-23 06:41] LABS: Alanine Aminotransfer (ALT/SGP 198 U/L (12-78); Albumin, Blood 2.4 g/dL (3.4-5.0); Albumin/Globulin Ratio 0.6 (0.8-1.8); Alk Phos 213 U/L (50-136); Anion Gap 7 mmol/L (6-16); Aspartate Aminotrans (AST/SGOT 204 U/L (12-37); Bilirubin, Total 0.7 mg/dL (0.1-1.0); Blood Urea Nitrogen 17 mg/dL (8-24); Bun/Creatinine Ratio 17.7 (12.0-20.0); CO2, Blood 28 mmol/L (21-32); Calcium, Blood 7.9 mg/dL (8.5-10.1); Chloride, Blood 106 mmol/L (98-108); Creatinine, Blood 0.96 mg/dL (0.40-1.00); Glomerular Filtration Rate >60 (60-); Glucose, Blood 120 mg/dL (70-99); Potassium, Blood 3.6 mmol/L (3.5-5.5); Sodium, Blood 141 mmol/L (136-145); Total Protein, Blood 6.4 g/dL (6.4-8.2)
--- NOTE | 2020-05-23 07:30 | NUR ---
pt on ra 91 % oob to void pt denies sob reports abd pain 3-4/10 pt has 1 gauze that is sat all the others are c/d/i pt is more alert this am compared to after surg yesterday no nausea
--- NOTE | 2020-05-23 08:38 | NUR ---
DR MELHCOR BY TO SEE PT
--- NOTE | 2020-05-23 12:21 | NUR ---
pt sitting up in edge of the bed eating lunch
--- NOTE | 2020-05-23 13:11 | NUR ---
pt yazan full liq diet was full only had est 50% pt wants to stay with full liq for dinner
--- NOTE | 2020-05-23 14:27 | NUR ---
pt visiting with s/o worked with physical therapy amb in hallway pt to sit oob in chair with all meals and amb in hallway tiwayne
--- NOTE | 2020-05-23 15:45 | NUR ---
PT REQ PAIN MED PO TYENOL GIVEN PT SITTING UP IN CHAIR VISITING WITH
--- NOTE | 2020-05-23 19:10 | NUR ---
MEDS GIVEN SCHED PT VISITING WITH SPOUSE
[2020-05-24 04:47] LABS: BASOPHILS ABSOLUTE AUTO 0.06 K/mm3 (0.00-0.23); BASOPHILS PERCENT AUTO 0 % (0-2); EOSINOPHILS ABSOLUTE AUTO 0.21 K/mm3 (0.00-0.68); EOSINOPHILS PERCENT AUTO 1 % (0-6); Hematocrit 33.9 % (33.0-51.0); Hemoglobin 10.7 g/dL (11.5-16.0); IMMATURE GRAN ABSOLUTE AUTO 0.51 K/mm3 (0.00-0.10); IMMATURE GRAN PERCENT AUTO 3 % (0-1); LYMPHOCYTES ABSOLUTE AUTO 1.77 K/mm3 (0.84-5.20); LYMPHOCYTES PERCENT AUTO 11 % (21-46); MONOCYTES ABSOLUTE AUTO 1.44 K/mm3 (0.16-1.47); MONOCYTES PERCENT AUTO 9 % (4-13); Mean Corpuscular HGB 30.1 pg (26.0-34.0); Mean Corpuscular HGB Conc 31.6 g/dL (31.5-36.5); Mean Corpuscular Volume 95 fL (80-100); NEUTROPHILS ABSOLUTE AUTO 11.78 K/mm3 (1.96-9.15); NEUTROPHILS PERCENT AUTO 75 % (41-73); Platelet Count 273 K/mm3 (150-400); RDW Coefficient Variation 13.2 % (11.7-14.2); RDW Standard Deviation 46.1 fL (35.1-46.3); Red Blood Cell Count 3.56 M/mm3 (3.80-5.20); White Blood Cell Count 15.77 K/mm3 (4.00-11.30)
[2020-05-24 05:07] LABS: Alanine Aminotransfer (ALT/SGP 252 U/L (12-78); Albumin, Blood 2.4 g/dL (3.4-5.0); Albumin/Globulin Ratio 0.6 (0.8-1.8); Alk Phos 214 U/L (50-136); Anion Gap 7 mmol/L (6-16); Aspartate Aminotrans (AST/SGOT 213 U/L (12-37); Bilirubin, Total 0.4 mg/dL (0.1-1.0); Blood Urea Nitrogen 14 mg/dL (8-24); Bun/Creatinine Ratio 17.6 (12.0-20.0); CO2, Blood 29 mmol/L (21-32); Calcium, Blood 7.8 mg/dL (8.5-10.1); Chloride, Blood 105 mmol/L (98-108); Glomerular Filtration Rate >60 (60-); Glucose, Blood 118 mg/dL (70-99); Potassium, Blood 3.4 mmol/L (3.5-5.5); Sodium, Blood 141 mmol/L (136-145); Total Protein, Blood 6.4 g/dL (6.4-8.2)
--- NOTE | 2020-05-24 05:55 | NUR ---
POD 2 S/P LAP NESTOR. PT VSS T/O NIGHT. PT CONT TO REQUIRE 1LO2 NC TO KEEP SATS >90% WHEN SLEEPING. LUNGS DIM, PT DECLINED NEED FOR PRN RT TX. ABD MOD DISTENDED, PT HAD NO C/O N/V, REP +FLATUS. INCISIONS CDI, STERI STRIPS PRINT INSPECTOR. PT UP OOB W/SBA, DOES HAVE SOME SOB W/EXERTION. PT FORGETFUL AND DISORIENTED AT TIMES, PT REP "SOMETIMES I DON'T KNOW HWERE I AM" PT REORIENTS EASILY. PT USES CALL LIGHT APPROPRIATELY.
--- NOTE | 2020-05-24 13:11 | NUR ---
05/24/20- PER CHART REVIEW WITH DR. SWANN, PT IS NOT STABLE FOR D/C AT THIS TIME. PT COULD POTENTIALLY DISCHARGE THURSDAY.-JIMMIE
--- NOTE | 2020-05-24 17:50 | NUR ---
SUMMARY: PT IS POD2 LAP NESTOR. NO ACUTE CHANGE TODAY. VSS, PT SEEMS TIRED BUT ORIENTED X4. FORGETFUL AT TIMES, BUT EASILY REORIENTED. TELE WNL, SPO2 STABLE ON RA WHILE AWAKE, PER NOC RN SATS DROP AT NIGHT. PT IS HAVING LIQ BM'S, REPORTS PASSING GAS. ABLE TO TOLERATE REG DIET FOR LUNCH AND DINNER TODAY, NO COMPLIANT OF N/V. SURGICAL SITES WNL. WILL MONITOR AND REPORT TO NOC RN.
[2020-05-25 05:30] LABS: BASOPHILS ABSOLUTE AUTO 0.06 K/mm3 (0.00-0.23); BASOPHILS PERCENT AUTO 0 % (0-2); EOSINOPHILS ABSOLUTE AUTO 0.22 K/mm3 (0.00-0.68); EOSINOPHILS PERCENT AUTO 2 % (0-6); Hematocrit 32.4 % (33.0-51.0); Hemoglobin 10.6 g/dL (11.5-16.0); IMMATURE GRAN ABSOLUTE AUTO 0.39 K/mm3 (0.00-0.10); IMMATURE GRAN PERCENT AUTO 3 % (0-1); LYMPHOCYTES ABSOLUTE AUTO 1.88 K/mm3 (0.84-5.20); LYMPHOCYTES PERCENT AUTO 13 % (21-46); MONOCYTES PERCENT AUTO 8 % (4-13); Mean Corpuscular HGB 30.1 pg (26.0-34.0); Mean Corpuscular HGB Conc 32.7 g/dL (31.5-36.5); Mean Corpuscular Volume 92 fL (80-100); NEUTROPHILS ABSOLUTE AUTO 10.74 K/mm3 (1.96-9.15); NEUTROPHILS PERCENT AUTO 74 % (41-73); Platelet Count 256 K/mm3 (150-400); RDW Coefficient Variation 12.7 % (11.7-14.2); RDW Standard Deviation 43.2 fL (35.1-46.3); Red Blood Cell Count 3.52 M/mm3 (3.80-5.20); White Blood Cell Count 14.49 K/mm3 (4.00-11.30)
[2020-05-25 06:17] LABS: Alanine Aminotransfer (ALT/SGP 274 U/L (12-78); Albumin, Blood 2.4 g/dL (3.4-5.0); Albumin/Globulin Ratio 0.6 (0.8-1.8); Alk Phos 203 U/L (50-136); Anion Gap 5 mmol/L (6-16); Aspartate Aminotrans (AST/SGOT 193 U/L (12-37); Bilirubin, Total 0.5 mg/dL (0.1-1.0); Blood Urea Nitrogen 8 mg/dL (8-24); Bun/Creatinine Ratio 10.9 (12.0-20.0); CO2, Blood 31 mmol/L (21-32); Calcium, Blood 8.3 mg/dL (8.5-10.1); Chloride, Blood 102 mmol/L (98-108); Creatinine, Blood 0.74 mg/dL (0.40-1.00); Glomerular Filtration Rate >60 (60-); Glucose, Blood 111 mg/dL (70-99); Sodium, Blood 138 mmol/L (136-145); Total Protein, Blood 6.4 g/dL (6.4-8.2)
--- NOTE | 2020-05-25 06:40 | NUR ---
POD 3 S/P LAP NESTOR. PT VSS T/O NIGHT. PT APPEARS TO HAVE LESS SOB W/EXERTION, SATS >90% ON RA WHILE AWAKE, 1LNC IN PLACE PRN WHILE SLEEPING. DRESSINGS CDI. BRUISING NOTED AROUND INCISIONS. PT MARYURI REG PO, NO N/V, PT IS PASSING FLATUS AND DARK GREEN LIQ BM. PT UP OOB W/SBA, APPEARS TO BE MARYURI ACTIVITY BETTER. PAIN MGD W/TYLENOL W/REP RELIEF. PT IS STILL SLOW TO RESPOND AND FORGEFUL AT TIMES BUT IS MORE HAPPY AND INTERACTIVE.
[2020-05-25] MEDS ORDERED: AMLO10 PO (17:24)
[2020-05-25] MEDS ORDERED: PANT40 PO (17:25)
[2020-05-25] MEDS ORDERED: POTCHL20ER PO (17:26)
[2020-05-25] MEDS ORDERED: AMOCLA500 PO (17:27)
--- NOTE | 2020-05-25 19:59 | NUR ---
DISCHARGE: PACKET PRINTED AND PT EDUCATED. LEFT UNIT WITH BETH MOORE AT ABOUT 1835.
== END 2020-05-25 18:40 | disposition home or self-care (01) | DRG 417 ==
LOC: ER 23:10 → ERHOLD 05-17 00:32 → SURS 05-17 00:45 → ERHOLD 05-17 00:45 → SURS 05-17 10:56
PROVIDERS: Emergency Medicine; Internal Medicine; Surgery; ADMIT Internal Medicine
PROC: BF532Z0 Other Imaging of Gallbladder and Bile Ducts using Fluorescing Agent, Intraoperative (ICD-10-PCS; 2020-05-22)
PROC: 0FT44ZZ Resection of Gallbladder, Percutaneous Endoscopic Approach (ICD-10-PCS; principal; 2020-05-22 10:30)
DX: K85.10 Biliary acute pancreatitis without necrosis or infection (principal); J95.821 Acute postprocedural respiratory failure; K80.12 Calculus of gallbladder with acute and chronic cholecystitis without obstruction; Z68.41 Body mass index [BMI] 40.0-44.9, adult; Z20.822 Contact with and (suspected) exposure to COVID-19; E66.01 Morbid (severe) obesity due to excess calories; E78.5 Hyperlipidemia, unspecified; E83.51 Hypocalcemia; E86.0 Dehydration; E87.6 Hypokalemia; I10 Essential (primary) hypertension; I16.0 Hypertensive urgency; J45.909 Unspecified asthma, uncomplicated; K21.9 Gastro-esophageal reflux disease without esophagitis; R94.5 Abnormal results of liver function studies; R82.90 Unspecified abnormal findings in urine; E87.70 Fluid overload, unspecified; Z85.42 Personal history of malignant neoplasm of other parts of uterus
CPT/HCPCS: 0241U; 36415; 36600; 71045; 74176; 74177; 74300; 76705; 80048; 80053; 80061; 80076; 81001; 82330; 82803; 83690; 83735; 83880; 85025; 86140; 87086; 88304; 93005; 93010; 94640; 94660; 94760; 94762; 96374; 96375; 96376; 97110; 97116; 97162; 99285-25; A9270; C1729; J0360; J0610; J1100; J1170; J1650; J1885; J1940; J2250; J2270; J2405; J2543; J2704; J3010; J3480; J7030; J7050; J7120; Q9967

== ENCOUNTER → 2020-09-24 | Outpatient (CLI) | payer MEDICARE, OTHER ==
[~2020-09-24] MED LIST changes: +AMLO10 PO; +AMOCLA500 PO; +PANT40 PO; +POTCHL20ER PO
== END ==
LOC: LAB SHORT 08:32
DX: L30.9 Dermatitis, unspecified (principal); H02.89 Other specified disorders of eyelid
CPT/HCPCS: 88305; 88312

== ENCOUNTER → 2020-12-01 | Outpatient (CLI) | payer MEDICARE, OTHER ==
[2020-12-01 12:45] LABS: Microalbumin, Urine Quant. 14.1 mg/L (0.000-20.000); Protein, Urine Quantitative 12.4 mg/dL (0.0-11.9)
== END | disposition home or self-care (01) ==
LOC: LAB SHORT 11:08 → OLS 11:08 → LAB FUT 11-29 11:05
PROVIDERS: Internal Medicine Nephrology
DX: Z20.822 Contact with and (suspected) exposure to COVID-19 (principal)
CPT/HCPCS: 81050; 82043; 82570; 84156; U0003

== ENCOUNTER → 2022-12-05 | Outpatient (CLI) | payer MEDICARE, OTHER ==
[2022-12-05 15:17] LABS: BASOPHILS ABSOLUTE AUTO 0.04 K/mm3 (0.00-0.23); BASOPHILS PERCENT AUTO 1 % (0-2); EOSINOPHILS ABSOLUTE AUTO 0.13 K/mm3 (0.00-0.68); EOSINOPHILS PERCENT AUTO 2 % (0-6); Hematocrit 42.8 % (33.0-51.0); Hemoglobin 14.3 g/dL (11.5-16.0); IMMATURE GRAN ABSOLUTE AUTO 0.02 K/mm3 (0.00-0.10); IMMATURE GRAN PERCENT AUTO 0 % (0-1); LYMPHOCYTES ABSOLUTE AUTO 2.39 K/mm3 (0.84-5.20); LYMPHOCYTES PERCENT AUTO 27 % (21-46); MONOCYTES PERCENT AUTO 7 % (4-13); Mean Corpuscular HGB 30.8 pg (26.0-34.0); Mean Corpuscular HGB Conc 33.4 g/dL (31.5-36.5); Mean Corpuscular Volume 92 fL (80-100); Mean Platelet Volume 10.9 fL (9.1-12.4); NEUTROPHILS ABSOLUTE AUTO 5.55 K/mm3 (1.96-9.15); NEUTROPHILS PERCENT AUTO 64 % (41-73); Platelet Count 264 K/mm3 (150-400); RDW Coefficient Variation 12.4 % (11.7-14.2); RDW Standard Deviation 41.8 fL (35.1-46.3); Red Blood Cell Count 4.64 M/mm3 (3.80-5.20); White Blood Cell Count 8.73 K/mm3 (4.00-11.30)
[2022-12-05 15:33] LABS: Albumin, Blood 3.8 g/dL (3.4-5.0); Albumin/Globulin Ratio 1.1 (0.8-1.8); Bilirubin, Total 0.5 mg/dL (0.1-1.0); Bun/Creatinine Ratio 18.2 (12.0-20.0); Calcium, Blood 8.7 mg/dL (8.5-10.1); Creatinine, Blood 0.71 mg/dL (0.40-1.00); Globulin, Blood 3.4 g/dL (2.2-4.0); Potassium, Blood 4.1 mmol/L (3.5-5.5); Total Protein, Blood 7.2 g/dL (6.4-8.2)
[2022-12-08 12:34] LABS: LDL/HDL RATIO 1.5; Very Low Density Lipoprot Chol 19 mg/dL (6-32)
[2022-12-08 12:35] LABS: CHOL/HDL RATIO 2.8; Cholesterol 164 mg/dL (50-200); HDL Cholesterol 58 mg/dL (>39); Low Density Lipoprotein Chol 87 mg/dL (0-110); Triglycerides 95 mg/dL (30-160)
== END | disposition home or self-care (01) ==
LOC: LAB SHORT 13:57 → LAB 13:57
PROVIDERS: Physician Assistant
DX: E78.5 Hyperlipidemia, unspecified (principal); R73.01 Impaired fasting glucose; Z82.41 Family history of sudden cardiac death
CPT/HCPCS: 80053; 80061; 83036; 85025

== ENCOUNTER 2023-05-19 20:49 | Emergency (ER) | payer OTHER ==
[~2023-05-19] VITALS: Ht 160 cm; Wt 98.4 kg
[2023-05-19 21:03] VITALS: BP 153/70
== END 2023-05-19 22:22 | disposition home or self-care (01) ==
LOC: ER 20:49
DX: S42.291A Other displaced fracture of upper end of right humerus, initial encounter for closed fracture (principal); W01.0XXA Fall on same level from slipping, tripping and stumbling without subsequent striking against object, initial encounter; Z79.899 Other long term (current) drug therapy; Z91.040 Latex allergy status; Z91.09 Other allergy status, other than to drugs and biological substances
CPT/HCPCS: 73060; 99283-25

== ENCOUNTER → 2024-06-20 | Outpatient (CLI) | payer OTHER ==
[2024-06-20 16:28] LABS: Bacterial Vaginosis PCR Negative (NEGATIVE); Candida Group, PCR NOT DETECTED (NOT DETECT); Candida glabrata-krusei, PCR NOT DETECTED (NOT DETECT)
== END ==
LOC: LAB SHORT 13:43 → LAB 13:43
PROVIDERS: Obstetrics & Gynecology
DX: N76.0 Acute vaginitis (principal)
CPT/HCPCS: 81515